=== PATIENT | male | born 2000 | race American Indian/Alaskan Native ===

== ENCOUNTER 2020-05-09 23:56 | Emergency (ER) | payer SELFPAY ==
[2020-05-10 00:13] VITALS: BP 147/71
--- NOTE | 2020-05-10 00:32 | Emergency Department Report ---
- General Chief Complaint: Dental/Oral Stated Complaint: YOSEF/ THROAT CLOSING Time Seen by Provider: 05/10/20 00:26 Source: patient Mode of arrival: Ambulatory Limitations: No Limitations - History of Present Illness Initial Comments: 19-year-old male 3 to 4-day history of sore throat of an unknown etiology ease with warm beverages but continue to remain present throughout the onset. Ports no fevers chills or sweats hemoptysis no hematemesis hematochezia no chest pain or palpitations. MD Complaint: sore throat, rhinorrhea, nasal congestion -: Gradual Severity: mild Quality: dull, aching Consistency: constant Associated Symptoms: fever, chills, headache, rhinorrhea, cough, hoarseness. denies: diaphoresis, chest pain, shortness of breath, abdominal pain, nausea, vomiting, confusion, right sweats, weight loss - Related Data Previous Rx's Medication Instructions Recorded Last Taken Type Amoxicillin/Potassium Clav 1 each PO BID #20 tablet 05/10/20 Unknown Rx [Augmentin 875-125 Tablet] Chlorhexidine Mouthwash [Peridex] 15 ml MM BID #1 bottle 05/10/20 Unknown Rx Lidocaine Viscous 2% 5 ml MM Q3H PRN #120 udc 05/10/20 Unknown Rx Allergies Allergy/AdvReac Type Severity Reaction Status Date / Time No Known Allergies Allergy Unverified 05/10/20 00:27 ED Review of Systems ROS: Stated complaint: YOSEF/ THROAT CLOSING Other details as noted in HPI Comment: All other systems reviewed and negative ED Past Medical Hx - Past Medical History Previous Medical History?: Yes Hx Seizures: Yes - Surgical History Past Surgical History?: No - Social History Smoking Status: Never Smoker Substance Use Type: Marijuana - Medications Home Medications: Home Medications Medication Instructions Recorded Confirmed Last Taken Type Amoxicillin/Potassium Clav 1 each PO BID #20 tablet 05/10/20 Unknown Rx [Augmentin 875-125 Tablet] Chlorhexidine Mouthwash [Peridex] 15 ml MM BID #1 bottle 05/10/20 Unknown Rx Lidocaine Viscous 2% 5 ml MM Q3H PRN #120 udc 05/10/20 Unknown Rx ED Physical Exam - General Limitations: No Limitations General appearance: alert, in no apparent distress - Head Head exam: Present: atraumatic, normocephalic - Eye Eye exam: Present: normal appearance, PERRL, EOMI Pupils: Present: normal accommodation - ENT ENT exam: Present: normal exam, mucous membranes moist, TM's normal bilaterally - Neck Neck exam: Present: normal inspection, full ROM. Absent: lymphadenopathy - Respiratory Respiratory exam: Present: normal lung sounds bilaterally. Absent: respiratory distress, wheezes, rales, rhonchi, chest wall tenderness, accessory muscle use, decreased breath sounds - Cardiovascular Cardiovascular Exam: Present: regular rate, normal rhythm. Absent: systolic murmur, diastolic murmur, rubs, gallop - GI/Abdominal GI/Abdominal exam: Present: soft, normal bowel sounds - Rectal Rectal exam: Present: deferred - Extremities Exam Extremities exam: Present: normal inspection - Back Exam Back exam: Present: normal inspection - Neurological Exam Neurological exam: Present: alert, oriented X3 - Psychiatric Psychiatric exam: Present: normal affect, normal mood - Skin Skin exam: Present: warm, dry, intact, normal color. Absent: rash ED Course Vital Signs 05/10/20 00:07 Temperature 97.7 F Pulse Rate 85 Respiratory 20 Rate Blood Pressure 147/71 O2 Sat by Pulse 100 Oximetry ED Medical Decision Making - EKG Data Rate: normal - EKG Data When compared to previous EKG there are: no significant change Interpretation: no acute changes Critical care attestation.: If time is entered above; I have spent that time in minutes in the direct care of this critically ill patient, excluding procedure time. ED Disposition Clinical Impression: Pharyngitis Disposition: DC-01 TO HOME OR SELFCARE Is pt being admited?: No Does the pt Need Aspirin: No Condition: Stable Instructions: Strep Throat, Adult, [id number], Sore Throat, [id number] Prescriptions: Amoxicillin/Potassium Clav [Augmentin 875-125 Tablet] 1 each PO BID #20 tablet Lidocaine Viscous 2% 5 ml MM Q3H PRN #120 udc PRN Reason: Pain, Moderate (4-6) Chlorhexidine Mouthwash [Peridex] 15 ml MM BID #1 bottle Referrals: PRIMARY CARE,MD [Primary Care Provider] - 3-5 Days
== END 2020-05-10 00:57 | disposition home or self-care (01) ==
LOC: ED 23:56
DX: J02.9 Acute pharyngitis, unspecified (principal); G40.909 Epilepsy, unspecified, not intractable, without status epilepticus; Z79.899 Other long term (current) drug therapy
CPT/HCPCS: 99282

== ENCOUNTER 2021-03-20 19:34 | Emergency (ER) | payer SELFPAY ==
--- NOTE | 2021-03-20 20:04 | Emergency Department Report ---
ED Abdominal Pain HPI - General Chief Complaint: Abdominal Pain Stated Complaint: CHEST AND STOMACH PAIN PUI?: No Source: patient Mode of arrival: Ambulatory - History of Present Illness Initial Comments: Patient is a 20-year-old -Vin[place] male with a history of seizures and is not on any medications presents to the ED with complaint of acute onset persistent left upper quadrant and epigastric pain that radiates to the substernal area with a burning dull sensation for the last 1 week. Patient states that food appears to make the pain worse. Patient states that the pain has been mild when he does not take any food but gets worse with food. Patient denies nausea, vomiting, shortness of breath, fever, chills, diarrhea, hematemesis, hematochezia, back pain, sore throat, nasal and sinus congestion, headache or change in vision. MD Complaint: abdominal pain (Epigastric, LUQ pain) -: Sudden, week(s) (1) Location: LUQ, epigastric Radiation: LUQ, epigastric Migration to: LUQ, epigastric Severity: moderate Severity scale (0 -10): 6 Quality: aching, dull Consistency: constant Improves With: nothing Worsens With: eating Associated Symptoms: denies other symptoms, anorexia. denies: nausea, vomiting, diarrhea, fever, chills, dysuria, hematemesis, hematochezia, melena, syncope - Related Data Previous Rx's Medication Instructions Recorded Last Taken Type Amoxicillin/Potassium Clav 1 each PO BID #20 tablet 05/10/20 Unknown Rx [Augmentin 875-125 Tablet] Chlorhexidine Mouthwash [Peridex] 15 ml MM BID #1 bottle 05/10/20 Unknown Rx Lidocaine Viscous 2% 5 ml MM Q3H PRN #120 udc 05/10/20 Unknown Rx Dicyclomine [Bentyl] 20 mg PO Q6H PRN #30 tablet 03/20/21 Unknown Rx Famotidine [Pepcid] 20 mg PO BID #60 tablet 03/20/21 Unknown Rx Omeprazole 40 mg PO DAILY #30 capsule. 03/20/21 Unknown Rx Ondansetron [Zofran Odt] 4 mg PO Q6HR PRN #15 tab.rapdis 03/20/21 Unknown Rx Allergies Allergy/AdvReac Type Severity Reaction Status Date / Time No Known Allergies Allergy Unverified 05/10/20 00:27 ED Review of Systems ROS: Stated complaint: CHEST AND STOMACH PAIN Other details as noted in HPI Constitutional: denies: chills, fever Eyes: denies: eye pain, eye discharge, vision change ENT: denies: ear pain, throat pain Respiratory: denies: cough, shortness of breath, wheezing Cardiovascular: denies: chest pain, palpitations Endocrine: no symptoms reported Gastrointestinal: abdominal pain (Epigastric and LUQ pain). denies: nausea, diarrhea, constipation Genitourinary: denies: urgency, dysuria Musculoskeletal: denies: back pain, joint swelling, arthralgia Skin: denies: rash, lesions Neurological: denies: headache, weakness, paresthesias Psychiatric: denies: anxiety, depression Hematological/Lymphatic: denies: easy bleeding, easy bruising ED Past Medical Hx - Past Medical History Hx Seizures: Yes - Social History Smoking Status: Never Smoker Substance Use Type: Marijuana - Medications Home Medications: Home Medications Medication Instructions Recorded Confirmed Last Taken Type Amoxicillin/Potassium Clav 1 each PO BID #20 tablet 05/10/20 Unknown Rx [Augmentin 875-125 Tablet] Chlorhexidine Mouthwash [Peridex] 15 ml MM BID #1 bottle 05/10/20 Unknown Rx Lidocaine Viscous 2% 5 ml MM Q3H PRN #120 udc 05/10/20 Unknown Rx Dicyclomine [Bentyl] 20 mg PO Q6H PRN #30 tablet 03/20/21 Unknown Rx Famotidine [Pepcid] 20 mg PO BID #60 tablet 03/20/21 Unknown Rx Omeprazole 40 mg PO DAILY #30 capsule.dr 03/20/21 Unknown Rx Ondansetron [Zofran Odt] 4 mg PO Q6HR PRN #15 tab.rapdis 03/20/21 Unknown Rx ED Physical Exam - General General appearance: alert, in no apparent distress - Head Head exam: Present: atraumatic, normocephalic, normal inspection - Eye Eye exam: Present: normal appearance, PERRL, EOMI Pupils: Present: normal accommodation - ENT ENT exam: Present: normal exam, normal orophraynx, mucous membranes moist, TM's normal bilaterally, normal external ear exam - Neck Neck exam: Present: normal inspection, full ROM - Respiratory Respiratory exam: Present: normal lung sounds bilaterally. Absent: respiratory distress, wheezes, rales, rhonchi, chest wall tenderness, accessory muscle use, decreased breath sounds, prolonged expiratory - Cardiovascular Cardiovascular Exam: Present: regular rate, normal rhythm, normal heart sounds. Absent: systolic murmur, diastolic murmur, rubs, gallop - GI/Abdominal GI/Abdominal exam: Present: soft, tenderness (Mildly tender epigastric, LUQ area), normal bowel sounds. Absent: guarding, rebound, hyperactive bowel sounds, hypoactive bowel sounds, mass, bruit, pulsatile mass - Extremities Exam Extremities exam: Present: normal inspection, full ROM, normal capillary refill - Back Exam Back exam: Present: normal inspection, full ROM, tenderness. Absent: CVA tenderness (R), CVA tenderness (L), muscle spasm, paraspinal tenderness, vertebral tenderness - Neurological Exam Neurological exam: Present: alert, oriented X3, CN II-XII intact, normal gait, reflexes normal - Psychiatric Psychiatric exam: Present: normal affect, normal mood - Skin Skin exam: Present: warm, dry, intact, normal color. Absent: rash ED Course Vital Signs 03/20/21 03/20/21 19:39 20:27 Temperature 98.3 F Pulse Rate 75 69 Respiratory 18 18 Rate Blood Pressure 118/69 Blood Pressure 98/69 [Left] O2 Sat by Pulse 99 100 Oximetry ED Medical Decision Making - Medical Decision Making This is a 20-year-old -[place]in[place] male with a history of seizures and is not on any medications presents to the ED with complaint of acute onset persistent left upper quadrant and epigastric pain that radiates to the substernal area with a burning dull sensation for the last 1 week. Patient states that food appears to make the pain worse. Patient states that the pain has been mild when he does not take any food but gets worse with food. In the ED, patient is alert and oriented x3 and is not in any distress. Patient is hemodynamically stable. Based on the history and physical exam findings, patient symptoms are likely due to GERD. Other differential diagnoses were considered including gastritis, dyspepsia or a viral syndrome. Patient was discharged home on medications for GERD and pain, and was advised to follow-up with his primary care physician in 7 to 10 days for reevaluation or return to the ED immediately if symptoms get worse. - Differential Diagnosis GERD; Gastritis; Dyspepsia; Viral syndrome Critical care attestation.: If time is entered above; I have spent that time in minutes in the direct care of this critically ill patient, excluding procedure time. ED Disposition Clinical Impression: Abdominal pain in male GERD (gastroesophageal reflux disease) Qualifiers: Esophagitis presence: esophagitis presence not specified Qualified Code(s): K21.9 - Gastro-esophageal reflux disease without esophagitis Disposition: HOME / SELF CARE / HOMELESS Is pt being admited?: No Does the pt Need Aspirin: No Condition: Stable Instructions: Abdominal Pain, Adult, [id number], Gastroesophageal Reflux Disease, Adult, [id number] Additional Instructions: Your symptoms are likely due to GERD or acid reflux. Therefore take medication with food, drink plenty of fluids and follow-up with your primary care physician in 7 to 10 days for reevaluation. Return to the ED immediately if symptoms get worse. Prescriptions: Dicyclomine [Bentyl] 20 mg PO Q6H PRN #30 tablet PRN Reason: Abdominal pain Omeprazole 40 mg PO DAILY #30 capsule. Famotidine [Pepcid] 20 mg PO BID #60 tablet Ondansetron [Zofran Odt] 4 mg PO Q6HR PRN #15 tab.rapdis PRN Reason: Nausea Referrals: [facility] [Provider Group] - 7-10 days Time of Disposition: 20:06 Print Language: [place]
[2021-03-20 20:28] VITALS: BP 98/69
== END 2021-03-20 20:27 | disposition home or self-care (01) ==
LOC: ED 19:34
DX: K21.9 Gastro-esophageal reflux disease without esophagitis (principal); F12.10 Cannabis abuse, uncomplicated
CPT/HCPCS: 99282